=== PATIENT | male | born 2000 | race Caucasian/White ===

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

== ENCOUNTER 2022-01-13 15:16 | Emergency (ER) | payer OTHER, SELFPAY ==
[2022-01-13 15:33] VITALS: BP 124/77; PULSE 63; RESP 16; TEMP 36.4; O2SAT 100
[2022-01-13 15:36] VITALS: BP 124/77; PULSE 63; RESP 16; TEMP 36.4; O2SAT 100
--- NOTE | 2022-01-13 16:01 | ED.EYEPROB ---
HPI - Eye Problem General Chief complaint: Eye Problems Stated complaint: pink eye Source: patient and family Mode of arrival: ambulatory Limitations: no limitations History of Present Illness HPI Narrative: Patient presents for evaluation of sick symptoms. His mother indicates he had COVID 4 weeks ago. He was treated with Paxlovid. His symptoms improved and essentially resolved. On of this week he developed a cough and some sinus congestion. They contacted primary care provider yesterday after taking a home COVID test which was positive. Mother indicates that he did have a negative test between his diagnosis 4 weeks ago and his positive test yesterday. Covering provider for his PCP Calling in any medications for him and mother was advised to take patient to urgent care. Patient reports some redness and drainage from both of his eyes. Mother believes he has bacterial conjunctivitis as he has had it in the past. He has underlying Marfan syndrome. He does not smoke. No fever, chills, nausea, vomiting, shortness of breath. Related Data Allergies Allergy/AdvReac Type Severity Reaction Status Date / Time No Known Allergies Allergy Verified 01/13/22 15:30 Review of Systems Review of Systems: CONSTITUTIONAL: Denies fever, chills, or sweats. EYES: Reports redness and drainage from both eyes. ENT: Reports sinus congestion and drainage. CARDIOVASCULAR: Denies chest pain, palpitations, or edema. RESPIRATORY: Reports cough and congestion. GASTROINTESTINAL: Denies abdominal pain, nausea, vomiting, or diarrhea. GENITOURINARY: Denies dysuria or hematuria. SKIN: Denies rash or itching. MUSCULOSKELETAL: Denies back pain, joint pain, or myalgia. NEUROLOGIC: Denies headache, numbness, dizziness, or weakness. PSYCHIATRIC: Denies anxiety or depression. [facility] Past Medical History Medical History Marfan syndrome Surgical History Surgical History No pertinent past surgical history Family History Family History Father Marfan syndrome Social History Social History Smoking status: Never smoker Alcohol intake: never Substance use: never Living arrangements: with family Gender identity (if verbalized by the patient): Male Spiritual care concerns: No Exam Narrative: GENERAL: Well-appearing, well-nourished, and in no acute distress. HEAD: Normocephalic, atraumatic. EYES: PERRLA and EOMI. bilateral conjunctival injection. ENT: Nares clear, no rhinorrhea or epistaxis. Mucous membranes moist. Oropharynx without tonsillar hypertrophy exudate or other lesions. Bilateral TMs pearly shen nonbulging NECK: Supple. No adenopathy or masses. No carotid bruits or JVD CHEST: Clear to auscultation. No respiratory distress. No wheezes rales or rhonchi HEART: Regular rate and rhythm. No murmur heard. Normal peripheral pulses. ABDOMEN: Soft, nontender, nondistended, normal active bowel sounds. EXTREMITIES: Normal range of motion. No edema. SKIN: Warm, dry, no rash. NEURO: No focal deficits. Alert and oriented x3. PSYCH: Normal mood and affect. Course Course Emergency Course: This is a 21-year-old male who presented for evaluation of sick symptoms with a COVID test which was positive yesterday. He did have COVID 4 weeks ago and was treated with Paxlovid, He had a negative test after treatment and then positive test yesterday. This is likely rebound seen in some patients who have been treated with Paxlovid. Advised on supportive measures. Will not send second round of Paxlovid. Some OTC therapies may be helpful. Will discharge with erythromycin for suspected bacterial conjunctivitis. Follow-up outpatient for further evaluation and treatment and go to the ER for worsening symptoms.
== END 2022-01-13 16:02 | disposition home or self-care (01) ==
PROVIDERS: Emergency Provider Nurse Practitioner
DX: U07.1 COVID-19 (principal); H10.9 Unspecified conjunctivitis; Q87.40 Marfan syndrome, unspecified
CPT/HCPCS: 99213; G0463

== ENCOUNTER 2022-06-04 17:52 | Emergency (ER) | payer OTHER, SELFPAY ==
--- NOTE | 2022-06-04 17:53 | ED.URI ---
HPI - URI/Sore Throat General Chief Complaint: Upper Respiratory Infection Stated Complaint: Sore Throat Time Seen by Provider: 06/04/22 17:53 Source: patient Mode of arrival: ambulatory Limitations: no limitations History of Present Illness HPI Narrative: Chava is a 22-year-old male patient presenting to clinic today with complaints of a sore throat, cough, and nasal congestion x3 days. He reports he has done to out COVID test 1 today and 1 yesterday and they were both negative. He denies any known fever or chills. Has had some nausea MD elicited complaint: sore throat and nasal congestion Related Data Allergies Allergy/AdvReac Type Severity Reaction Status Date / Time No Known Allergies Allergy Verified 06/04/22 17:53 Review of Systems Review of Systems: Pertinent positives per HPI. Patient denies any fever, chills, rash, headache, visual changes, dizziness, cough, shortness of breath, chest pain, palpitations, nausea, vomiting, diarrhea, constipation, abdominal pain, or any urinary issues. PMFSH Past Medical History Medical History Marfan syndrome Surgical History Surgical History No pertinent past surgical history Family History Family History Father Marfan syndrome Social History Social History Smoking status: Never smoker Alcohol intake: never Substance use: never Living arrangements: with family Gender identity (if verbalized by the patient): Male Spiritual care concerns: No Comments At the time of my signature, I reviewed and agree with the nursing past medical, surgical, social, and family history. There is no relevant family history pertinent to the patient complaint. Exam Narrative: General: Well-developed, well nourished, in no apparent distress Head: Normocephalic, atraumatic Eyes: Pupils equally round and reactive to light bilaterally, EOM intact, sclera and conjunctive clear, no discharge, lids normal Ears: TMs intact and dull, ear canals clear, no drainage, grossly hearing normal. Nose: Nares patent, clear nasal discharge, moderate inflammation, no sinus tenderness. Mouth: Oral pharynx without lesions or masses, good dentition, MMM. Oropharynx red, postnasal drip Neck: Supple, trachea midline, no enlargement of anterior or posterior cervical nodes, no thyroid masses or goiter palpable. Cardio: Regular rate and rhythm, s1 and s2 normal, no murmur appreciated. Resp: Clear to auscultation bilaterally, no rhonchi, rales, wheezing or rubs Course Course Emergency Course: Portions of this record may have been created with voice recognition software. Level of Care: Express Care Visit Vital Signs Vital signs: Vital signs reviewed MDM - URI/Sore Throat MDM Narrative Medical decision making narrative: At the time of the patient is resting comfortably on exam table. Strep screen was negative in the clinic today. I suspect patient has an upper respiratory infection, pharyngitis, viral syndrome. Will send a prescription for some prednisone to help with the congestion and the sore throat. Will send strep for culture. Supportive measures were discussed with the patient he voiced understanding discharge instructions agrees to treatment plan Differential Diagnosis Differential diagnosis: Likely upper respiratory infection, otitis media, sinusitis, viral infection, bronchitis, influenza, pharyngitis and other (COVID) Discharge Plan Discharge Clinical Impression: Acute upper respiratory infection, Pharyngitis, Acute viral syndrome Patient Disposition: Home, Self-Care Condition: Stable Instructions: Antibiotic Form, Pharyngitis (ED), Upper Respiratory Infection (ED), Viral Syndrome (ED), Postnasal Drip (DC) Additional Instructi
[2022-06-04 18:04] VITALS: BP 140/77; PULSE 74; RESP 16; TEMP 36.7; O2SAT 99
== END 2022-06-04 18:27 | disposition home or self-care (01) ==
LOC: EXPCOLL 17:57
PROVIDERS: Emergency Provider Nurse Practitioner Family
DX: J02.8 Acute pharyngitis due to other specified organisms (principal)
CPT/HCPCS: 87081; 87880; 99213; G0463

== ENCOUNTER 2023-06-27 14:00 | Emergency (ER) | payer OTHER, SELFPAY ==
[2023-06-27 14:18] VITALS: BP 137/64; PULSE 79; RESP 16; TEMP 37.3; O2SAT 100
[2023-06-27 14:21] VITALS: BP 137/64; PULSE 79; RESP 16; TEMP 37.3; O2SAT 100
--- NOTE | 2023-06-27 14:36 | ED.URI ---
HPI - URI/Sore Throat General Chief Complaint: Upper Respiratory Infection Stated Complaint: cough,sore throat,congested Time Seen by Provider: 06/27/23 14:22 Source: patient and RN notes reviewed Mode of arrival: ambulatory Limitations: no limitations History of Present Illness HPI Narrative: Patient presents today complaining of 5-6 day history of sore throat, cough, congestion. He has taken a dose of Benadryl and 8 doses of leftover Augmentin he has had at home, neither which have provided relief. Denies shortness of breath, chest pain, nausea vomiting, diarrhea, fever. Related Data Home Medications Medication Instructions Recorded Confirmed No Home Medications 06/27/23 06/27/23 Allergies Allergy/AdvReac Type Severity Reaction Status Date / Time No Known Allergies Allergy Verified 06/04/22 17:53 Review of Systems Review of Systems: CONSTITUTIONAL: Denies body aches, fever, chills, or sweats. EYES: Denies visual changes, redness, or discharge. ENT: Denies rhinorrhea, or otalgia.+ congestion, sore throat CARDIOVASCULAR: Denies chest pain, palpitations, or edema. RESPIRATORY: Denies dyspnea.+ cough GASTROINTESTINAL: Denies abdominal pain, nausea, vomiting, or diarrhea. GENITOURINARY: Denies dysuria or hematuria. SKIN: Denies rash, itching, or wounds. MUSCULOSKELETAL: Denies back pain, joint pain, or myalgia. NEUROLOGIC: Denies headache, numbness, tingling, or weakness. PSYCH: Denies depression or anxiety. [facility] Past Medical History Medical History Marfan syndrome Surgical History Surgical History No pertinent past surgical history Family History Family History Father Marfan syndrome Social History Social History Smoking status: Never smoker Alcohol intake: never Substance use: never Living arrangements: with family Gender identity (if verbalized by the patient): Male Spiritual care concerns: No Comments At time of signature, I have reviewed and agree with nursing past medical, surgical, social and family history unless otherwise noted. Please see nursing chart for further information. There is no relevant family history pertinent to the presenting complaint Exam Narrative: GENERAL: Well-appearing, well-nourished, and in no acute distress. HEAD: Normocephalic, atraumatic. EYES: EOMI. No redness or drainage. Conjunctivae normal. ENT: Mucous membranes pink and moist. Nares clear. No rhinorrhea. TMs normal bilaterally. Throat normal. Uvula midline. NECK: Normal AROM. Supple. No lymphadenopathy. CHEST: No respiratory distress. Clear to auscultation. HEART: Regular rate and rhythm. No murmur appreciated. EXTREMITIES: Normal range of motion. No edema. SKIN: Warm, dry, no rash. Capillary refill normal. Normal skin turgor. NEURO: No focal deficits. Alert and oriented x3. Gait steady. PSYCH: Normal affect. No signs of depression or anxiety. Course Course Level of Care: Express Care Visit Vital Signs Vital signs: Vital Signs Temperature 99.2 F 06/27/23 14:18 Pulse Rate 79 06/27/23 14:18 Respiratory Rate 16 06/27/23 14:18 Blood Pressure 137/64 06/27/23 14:18 Pulse Oximetry 100 06/27/23 14:18 Oxygen Delivery Room Air 06/27/23 14:18 Temperature 99.2 F 06/27/23 14:21 Pulse Rate 79 06/27/23 14:21 Respiratory Rate 16 06/27/23 14:21 Blood Pressure 137/64 06/27/23 14:21 Pulse Oximetry 100 06/27/23 14:21 Oxygen Delivery Room Air 06/27/23 14:21 Reviewed MDM - URI/Sore Throat MDM Narrative Medical decision making narrative: Strep negative. Culture pending. Symptoms likely viral in etiology, especially since Augmentin has not been helping. Instructed to stop the Augmentin and star
== END 2023-06-27 14:44 | disposition home or self-care (01) ==
PROVIDERS: Emergency Provider Nurse Practitioner
DX: J06.9 Acute upper respiratory infection, unspecified (principal)
CPT/HCPCS: 87081; 87880; 99213; G0463